=== PATIENT | male | born 1930 | race Caucasian/White ===

== ENCOUNTER → 2017-02-24 | Outpatient (CLI) | payer OTHER ==
--- NOTE | 2017-02-24 14:16 | DIAGNOSTIC IMAGING REPORT ---
(CHEST) THORAX WITHOUT CT DOSE: 272.87 mGy.cm HISTORY: PLEURAL EFFUSION TECHNIQUE: Multiaxial CT images of the chest were performed without contrast. A dose lowering technique was utilized adhering to the principles of ALARA. COMPARISON: None. FINDINGS: The central airways are patent. Mild emphysema. An 11 mm peripheral groundglass density within the left upper lobe on image 90 of 316. A few scattered punctate calcified granulomas. Subpleural reticulation is likely chronic. A 3 mm nodule within the right upper lobe on image 100. 4 mm subpleural nodule along the left major fissure on image 150. Mild interlobular septal thickening at the right lung base. No suspicious lytic or blastic osseous lesions. Cholelithiasis. Calcified granulomas within the spleen. Normal adrenal glands. No hepatic masses. A 7 mm hypodense nodule within the right thyroid lobe. Mild calcified plaque within the normal caliber thoracic aorta. No hilar lymphadenopathy. Small right basilar hydropneumothorax. A few small right posterior calcified pleural plaques. Small linear fluid tract within the right lateral chest wall best seen on image 237. This likely represents a site of a prior chest tube. No left-sided pneumothorax. A few prominent mediastinal lymph nodes. IMPRESSION: 1. Small right basilar hydropneumothorax. The gas component is likely due to prior chest tube placement. There is a small linear tract of fluid within the right lateral chest wall which likely represents the site of the prior chest tube. 2. An 11 mm groundglass nodule within the left upper lobe. This has a non mass-like appearance and may represent a small focus of inflammatory/infectious change. Six-month to one-year chest CT follow-up is recommended to ensure resolution. 3. Mild emphysema. 4. A few scattered indeterminate subcentimeter nodules within the lungs. Electronically signed by: Addy Echevarria M.D. 02/24/2017 2:15 PM Dictated Date/Time: 02/24/2017 2:06 PM
== END | disposition home or self-care (01) ==
LOC: C.CTS 13:37
PROVIDERS: ATTEND Internal Medicine Critical Care Medicine
DX: J90 Pleural effusion, not elsewhere classified (principal)

== ENCOUNTER → 2017-05-07 | Outpatient (CLI) | payer OTHER ==
--- NOTE | 2017-05-07 07:37 | DIAGNOSTIC IMAGING REPORT ---
(CHEST) THORAX WITHOUT CT DOSE: 259.18 mGy.cm HISTORY: Pleural effusion J90 [facility] 7:30. PT AWARE. CLEAR TECHNIQUE: Multiaxial CT images of the chest were performed without contrast. A dose lowering technique was utilized adhering to the principles of ALARA. COMPARISON: 02/24/2017 FINDINGS: Small right basilar pleural effusion unchanged in the prior study. Mild right and to a minimal extent left basilar atelectasis also unchanged. Scattered pleural-based to a lesser extent parenchymal nodularity unaltered. Several indeterminate mediastinal and hilar nodes also unaltered. Moderate atherosclerotic change thoracic aorta is similar. No evidence for new or interval process. IMPRESSION: 1. Stable exam with no change compared to the prior study. 2. Unchanging small right basilar pleural effusion. 3. Minimal parenchymal nodularity considered stable and unchanged as well. The above report was generated using voice recognition software. It may contain grammatical, syntax or spelling errors. Electronically signed by: Parth Almazan M.D. 05/07/2017 7:36 AM Dictated Date/Time: 05/07/2017 7:30 AM
== END | disposition home or self-care (01) ==
LOC: C.CTS 07:06
PROVIDERS: ATTEND Internal Medicine Critical Care Medicine
DX: J90 Pleural effusion, not elsewhere classified (principal)

== ENCOUNTER → 2017-07-29 | Outpatient (CLI) | payer OTHER ==
--- NOTE | 2017-07-29 16:49 | DIAGNOSTIC IMAGING REPORT ---
CHEST 3 VIEWS INCLUDING A RIGHT LATERAL DECUBITUS CLINICAL HISTORY: J90 Pleural [id number] empyema COMPARISON STUDY: Chest CT dated 05/07/2017 FINDINGS: The heart is enlarged. There is a small right pleural effusion which layers to maximal depth of 5 mm. There are associated right lower lobe airspace opacities.[ Slightly prominent left basal markings are likely atelectatic. There is no overt failure. IMPRESSION: Small right pleural effusion with associated right basilar airspace opacities. Electronically signed by: Stanley Anderson M.D. 07/29/2017 4:48 PM Dictated Date/Time: 07/29/2017 4:46 PM
== END | disposition home or self-care (01) ==
LOC: C.RAD1850 16:12
PROVIDERS: ATTEND Internal Medicine Critical Care Medicine
DX: J86.9 Pyothorax without fistula (principal); J90 Pleural effusion, not elsewhere classified; J98.4 Other disorders of lung

== ENCOUNTER → 2017-08-10 | Outpatient (CLI) | payer OTHER ==
--- NOTE | 2017-08-10 11:29 | DIAGNOSTIC IMAGING REPORT ---
CT OF THE CHEST WITHOUT IV CONTRAST CLINICAL HISTORY: Pleural effusion. Empyema. COMPARISON STUDY: Chest CT May 07, 2017 and chest radiograph July 29, 2017. CT DOSE: 218.34 mGy.cm TECHNIQUE: Axial images of the chest were obtained without IV contrast. Images were reviewed in the axial, sagittal, and coronal planes. IV contrast was not administered for this examination. A dose lowering technique was utilized adhering to the principles of ALARA. FINDINGS: No enlarged axillary or hilar lymph nodes are present. A borderline enlarged subcarinal lymph node shown on image 161 of 291 measures 1.1 cm in short axis diameter. This is unchanged. Size of the heart is normal. There is extensive vascular calcification. A small right pleural effusion with associated pleural thickening has slightly decreased in size since exam of May 07, 2017. Pleural thickening, most evident within the anteromedial inferior right hemithorax is noted. This appears increased. This is nonspecific. A few calcified granulomas are noted. A 1.2 cm subpleural groundglass opacity within the left upper lobe shown on image 89 is unchanged since exam of April 04, 2016. No overtly suspicious skeletal lesions are present. Upper abdomen is unremarkable. There is a healing posterior left 10th rib fracture. IMPRESSION: 1. Interval decrease in size of a small right pleural effusion since chest CT of May 07, 2017. 2. Interval increase in right hemithorax pleural thickening. This is nonspecific and could be correlated with previous thoracentesis results. A neoplastic etiology is within the differential. 3. No change in a 1.2 cm subpleural groundglass left upper lobe opacity which can be assessed on subsequent exams. 4. Stable borderline enlarged subcarinal lymph node. Electronically signed by: Doug Brown M.D. 08/10/2017 11:27 AM Dictated Date/Time: 08/10/2017 11:08 AM
== END | disposition home or self-care (01) ==
LOC: C.CTS 10:42
PROVIDERS: ATTEND Internal Medicine Critical Care Medicine
DX: J86.9 Pyothorax without fistula (principal); J90 Pleural effusion, not elsewhere classified